=== PATIENT | female | born 1980 | race Caucasian/White ===

== ENCOUNTER 2016-09-27 12:45 | Emergency (ER) | payer MEDICARE, MEDICAID ==
[~2016-09-27] VITALS: Ht 167.6 cm; Wt 108.4 kg
[~2016-09-27 12:45] MED LIST: ENOX80SY5 SQ; GABA100C8 PO; GABA300C10 PO; HYDR-3138 PO; LISI-170 PO; OMEP-110 PO; TRAZ50TA18 PO; WARF3TAB7 PO; WARF4TAB7 PO; WARF6TAB PO; WARF6TAB7 PO; WARF7.5T6 PO
[2016-09-27 12:46] VITALS: BP 149/84
[2016-09-27] MEDS ORDERED: DIPHENHYDRAMINE 50 MG/ML, 1ML ONE (13:19)
[2016-09-27] MEDS ORDERED: DIPHENHYDRAMINE 25 MG CAPSULE PO ONE (13:30)
== END 2016-09-27 13:33 | disposition left against medical advice (07) ==
LOC: ED 13:27
DX: R10.84 Generalized abdominal pain (principal); M54.89 Other dorsalgia; R11.2 Nausea with vomiting, unspecified; R19.7 Diarrhea, unspecified; R63.0 Anorexia; J45.909 Unspecified asthma, uncomplicated; M79.7 Fibromyalgia; I25.2 Old myocardial infarction; C50.919 Malignant neoplasm of unspecified site of unspecified female breast
CPT/HCPCS: 99281

== ENCOUNTER 2016-09-29 11:28 | Emergency (ER) | payer MEDICARE, MEDICAID | END 2016-09-29 12:25 | disposition left against medical advice (07) | LOC: ED 12:10 | DX: R10.30 Lower abdominal pain, unspecified (principal); Z53.21 Procedure and treatment not carried out due to patient leaving prior to being seen by health care provider ==

== ENCOUNTER 2016-10-22 18:15 | Emergency (ER) | payer MEDICARE, MEDICAID ==
[~2016-10-22] VITALS: Ht 167.6 cm; Wt 106.5 kg
[2016-10-22 18:24] VITALS: BP 140/101
== END 2016-10-22 19:58 | disposition left against medical advice (07) ==
LOC: ED 19:52
DX: R10.13 Epigastric pain (principal); R11.2 Nausea with vomiting, unspecified; M79.7 Fibromyalgia; Z98.51 Tubal ligation status
CPT/HCPCS: 99281

== ENCOUNTER 2016-10-25 06:04 | Emergency (ER) | payer MEDICARE, MEDICAID ==
[~2016-10-25] VITALS: Ht 167.6 cm; Wt 107.6 kg
[2016-10-25 06:06] VITALS: BP 138/90
[2016-10-25] MEDS ORDERED: ALUMINUM/MAG/SIMETHICONE 30 ML UDC PO PRN (06:30)
== END 2016-10-25 06:41 | disposition left against medical advice (07) ==
LOC: ED 06:38
DX: R10.13 Epigastric pain (principal); R07.9 Chest pain, unspecified; G40.909 Epilepsy, unspecified, not intractable, without status epilepticus; J45.909 Unspecified asthma, uncomplicated; C50.919 Malignant neoplasm of unspecified site of unspecified female breast
CPT/HCPCS: 99281

== ENCOUNTER 2016-11-04 18:21 | Emergency (ER) | payer MEDICARE, MEDICAID ==
[~2016-11-04] VITALS: Ht 167.6 cm; Wt 104.8 kg
[2016-11-04 18:24] VITALS: BP 130/76
== END 2016-11-04 20:16 | disposition left against medical advice (07) ==
LOC: ED 20:10
DX: R10.9 Unspecified abdominal pain (principal); R07.9 Chest pain, unspecified; R06.02 Shortness of breath; Z53.21 Procedure and treatment not carried out due to patient leaving prior to being seen by health care provider
CPT/HCPCS: 93005

== ENCOUNTER 2016-12-21 14:08 | Emergency (ER) | payer MEDICARE, MEDICAID | END 2016-12-21 15:34 | disposition left against medical advice (07) | LOC: ED 14:39 | DX: R10.9 Unspecified abdominal pain (principal); Z53.21 Procedure and treatment not carried out due to patient leaving prior to being seen by health care provider ==

== ENCOUNTER 2016-12-31 12:43 | Emergency (ER) | payer MEDICARE, MEDICAID ==
[~2016-12-31] VITALS: Ht 167.6 cm; Wt 104.8 kg
[~2016-12-31 12:43] MED LIST changes: +GABA-826 PO; -GABA100C8 PO
[2016-12-31 12:45] VITALS: BP 122/77
== END 2016-12-31 13:18 | disposition left against medical advice (07) ==
LOC: ED 13:12
DX: R07.9 Chest pain, unspecified (principal); Z53.21 Procedure and treatment not carried out due to patient leaving prior to being seen by health care provider

== ENCOUNTER 2017-01-21 13:05 | Emergency (ER) | payer MEDICAID, MEDICARE ==
[~2017-01-21] VITALS: Ht 167.6 cm; Wt 105.7 kg
[2017-01-21 13:17] VITALS: BP 133/80
== END 2017-01-21 14:58 | disposition left against medical advice (07) ==
LOC: ED 13:17
DX: R06.00 Dyspnea, unspecified (principal); R07.89 Other chest pain; J45.909 Unspecified asthma, uncomplicated; Z86.711 Personal history of pulmonary embolism; Z85.3 Personal history of malignant neoplasm of breast; I25.2 Old myocardial infarction; Z90.49 Acquired absence of other specified parts of digestive tract; Z98.51 Tubal ligation status; Z88.0 Allergy status to penicillin; Z79.01 Long term (current) use of anticoagulants; Z88.1 Allergy status to other antibiotic agents; Z88.6 Allergy status to analgesic agent; Z88.8 Allergy status to other drugs, medicaments and biological substances
CPT/HCPCS: 93005; 99283

== ENCOUNTER 2017-04-01 17:46 | Emergency (ER) | payer MEDICARE ==
[~2017-04-01] VITALS: Ht 167.6 cm; Wt 98.9 kg
[~2017-04-01 17:46] MED LIST changes: -HYDR-3138 PO; +HYDR-3237 PO
[2017-04-01 17:52] VITALS: BP 160/94
[2017-04-01] MEDS ORDERED: SODIUM CHLORIDE FLUSH 10ML SYR IVF ONE (18:30)
[2017-04-01] MEDS ORDERED: SODIUM CHLORIDE 0.9% 1,000ML IVBOLUS ONE (18:30)
== END 2017-04-01 20:21 | disposition left against medical advice (07) ==
LOC: ED 19:17
DX: G89.11 Acute pain due to trauma (principal); R51 Headache; R10.31 Right lower quadrant pain; R10.11 Right upper quadrant pain; F11.20 Opioid dependence, uncomplicated; E66.01 Morbid (severe) obesity due to excess calories; Z72.89 Other problems related to lifestyle
CPT/HCPCS: 71010; 99283